=== PATIENT | female | born 1980 | race Caucasian/White ===

== ENCOUNTER 2017-04-02 19:54 | Emergency (ER) | payer OTHER ==
[~2017-04-02] VITALS: Ht 162.6 cm; Wt 111.0 kg
[2017-04-02 20:27] VITALS: BP 148/68; PULSE 87; RESP 18; TEMP 98.1; O2SAT 99
--- NOTE | 2017-04-02 21:12 | PD ---
HPI Chief Complaint: Back/ Neck Pain or Injury Time Seen by Provider: 21:07 Travel History International Travel<30 days: No Contact w/Intl Traveler<30days: No Traveled to known affect area: No History of Present Illness HPI 37-year-old female came to the emergency room with history of lower back pain radiating down her left buttock and leg all the way down to her toes. Patient says that she had back surgery in 2004 which had taken care of the back pain that she used to have prior to the surgery. But lately her back has started to act up again. She has a 1-year-old child and has to bend on constantly to tend to him. And today she started at work during her shift the entire time which has really made her back worse. She appears to be in distress. Patient is adamant that she should not be discharged home on any Lortabs because she does not like taking pain pills. She says that in the past Flexeril has helped. But she wants something so that she can walk back to her truck. No history of bowel or bladder incontinence. [facility] Past Medical History Narrative Medical List of her past medical, surgical, social and family history is reviewed from the nursing note. Anxiety: Yes Diabetes: Yes (RESOLVED PER PT) Diminished Hearing: No GERD: Yes Hepatitis: Yes (hep. a in 1995.) Reproductive: Yes (hx of irregular menses) Immunizations Current: Yes Tetanus Vaccination: < 5 Years Influenza Vaccination: No ?: Not LMP: 03/26/17 : 1 Para: 1 Miscarriage: 0 : 0 Past Surgical History Section: Yes Other Surgery: Yes (BREAST REDUCTION - 1998) Social History Alcohol Use: No Tobacco Use: No (QUIT) Substance Use: No Allergies-Medications (Allergen,Severity, Reaction): Coded Allergies: acetaminophen (Unverified Adverse Reaction, Severe, dizziness, headache, ) hydrocodone (Unverified Adverse Reaction, Severe, dizziness, headache, 02/05) Comments List of her allergies reviewed from the nursing note. Reported Meds & Prescriptions Reported Meds & Active Scripts Active Protonix (Pantoprazole Sodium) 20 Mg Tab 20 Mg PO DAILY Medrol Dosepak (Methylprednisolone) 4 Mg Dspk 4 Mg PO DIRECTED Per Pharmacist direction Flexeril (Cyclobenzaprine HCl) 5 Mg Tab 5 Mg PO TID Narrative Medication List of her home medications reviewed from the nursing note. Review of Systems Except as stated in HPI: all other systems reviewed are Neg Musculoskeletal: Positive: Pain Physical Exam Narrative GENERAL: Awake, alert, obese, moderate distress SKIN: Focused skin assessment warm/dry. HEAD: Atraumatic. Normocephalic. EYES: Pupils equal and round. No scleral icterus. No injection or drainage. ENT: No nasal bleeding or discharge. Mucous membranes pink and moist. NECK: Trachea midline. No JVD. CARDIOVASCULAR: Regular rate and rhythm. No murmur appreciated. RESPIRATORY: No accessory muscle use. Clear to auscultation. Breath sounds equal bilaterally. GASTROINTESTINAL: Abdomen soft, non-tender, nondistended. Hepatic and splenic margins not palpable. MUSCULOSKELETAL: No obvious deformities. No clubbing. No cyanosis. No edema. Decreased range of motion especially flexion of the hip of the left leg due to the pain. NEUROLOGICAL: Awake and alert. No obvious cranial nerve deficits. Motor grossly within normal limits. Normal speech. PSYCHIATRIC: Appropriate mood and affect; insight and judgment normal. Data Data Last Documented VS Vital Signs Date Time Temp Pulse Resp B/P (MAP) Pulse Ox O2 Delivery O2 Flow Rate FiO2 04/02/17 20:27 98.1 87 18 148/68 (94) 99 Orders Orders Ketorolac Inj (Toradol Inj) (04/02/17 21:30) Orphenadrine Inj (Norflex Inj) (04/02/17 21:30) Ed Discharge Order (04/02/17 22:02) [facility] Medical Decision Making Medical Screen Exam Complete: Yes Emergency Medical Condition: Yes Medical Record Reviewed: Yes Differential Diagnosis Lumbar radiculopathy, sciatica Narrative Course 9:24 PM I've ordered for IM Toradol and Norflex. Once patient feels comfortable she'll be discharged home on prescription medication. I have recommended that she should follow up with her primary care and get an outpatient MRI ordered by the primary care. Patient understands this. Procedures EKG Prior to Arrival: No Diagnosis Primary Impression: Lumbar radiculopathy, acute Referrals: Primary Care Physician Additional Instructions: Take the medications as per the prescription direction. Follow-up with your primary care next couple days and get an MRI as an outpatient. Based on the MRI result he primary care should probably refer you to a medical billing and coding specialist. Return to ER if condition worsens or any other new concerns. Med/Other Pt SpecificInfo: Prescription(s) given Scripts Pantoprazole (Protonix) 20 Mg Tab 20 MG PO DAILY for Reflux, #30 TAB 0 Refills Prov: Kathy Jensen MD 04/02/17 Methylprednisolone Dosepak (Medrol Dosepak) 4 Mg Dspk 4 MG PO DIRECTED, #1 DSPK 0 Refills Per Pharmacist direction Prov: Kathy Jensen MD 04/02/17 Cyclobenzaprine (Flexeril) 5 Mg Tab 5 MG PO TID for Muscle Spasm, #21 TAB 0 Refills Prov: Kathy Jensen MD 04/02/17 Disposition: 01 DISCHARGE HOME Condition: Stable Kathy Jensen MD Apr 02, 2017 21:12
[2017-04-02] MEDS ORDERED: MEDR4PAK PO (21:27)
[2017-04-02] MEDS ORDERED: CYCL5TAB PO (21:27)
[2017-04-02] MEDS ORDERED: PANT20 PO (21:27)
[2017-04-02] MEDS ORDERED: KETOROLAC TROMETHAMINE 60 MG/2 ML (IM) VIAL IM ONE (21:30)
[2017-04-02] MEDS ORDERED: ORPHENADRINE INJ 60 MG/2 ML AMP IM ONE (21:30)
== END 2017-04-02 22:13 | disposition home or self-care (01) ==
LOC: PHED 19:54 → PHEFT 22:13
DX: M54.16 Radiculopathy, lumbar region (principal); K21.9 Gastro-esophageal reflux disease without esophagitis; E11.9 Type 2 diabetes mellitus without complications; Z86.59 Personal history of other mental and behavioral disorders; Z87.42 Personal history of other diseases of the female genital tract
CPT/HCPCS: 96372; 99283; J1885; J2360